=== PATIENT | female | born 2000 | race Caucasian/White ===

== ENCOUNTER 2019-02-11 17:48 | Emergency (ER) | payer MEDICAID ==
--- NOTE | 2019-02-11 17:59 | ED Physician Chart ---
ED Chief Complaint/HPI - Patient Information Date Seen:: 02/11/19 Time Seen:: 17:55 Chief Complaint:: Left earache for 2 days. History of Present Illness:: Pt came in by private auto because of left earache for about 2 days. No fever or hearing loss. No tinnitus. LNMP 11/22/2018. Pt has confirmed single IUP by pelvic sonogram and has been followed by her [facility] physician Dr. Monsalve. Allergies:: Allergies Allergy/AdvReac Type Severity Reaction Status Date / Time ceftriaxone [From Rocephin] Allergy Verified 08/15/16 14:17 Vitals:: see Nurse Note. Historian:: Patient Family MD/PCP:: Dr. Villaseñor. LMP:: 11/22/18 Review:: Nurse's Note Reviewed ED Review of Systems - Review of Systems General/Constitutional: No fever, No chills, No weight loss, No weakness, No loss of appetite Skin: No skin lesions, No rash, No bruising Head: No headache, No light-headedness Eyes: No loss of vision, No pain, No diplopia ENT: Earache, No sore throat Neck: No neck pain, No swelling, No stiffness, No mass noted Cardio Vascular: No chest pain Pulmonary: No SOB, Cough (occasional nonproductive cough with nasal congestion.) GI: No nausea, No vomiting, No pain G/U: No dysuria, No frequency, No hematuria Ese Teacher: No vaginal discharge, No abnormal vaginal bleed Musculoskeletal: No bone or joint pain Endocrine: No polyuria, No polydipsia Psychiatric: No prior psych history, No depression Hematopoietic: No bruising, No lymphadenopathy Allergic/Immuno: No urticaria, No angioedema Neurological: No syncope, No focal symptoms, No weakness, No paresthesia, No headache, No dizziness, No confusion ED Past Medical History - Past Medical History Past Medical History: No significant medical hx Family History: Diabetes Melitus (in one brother.) Social History: Non Smoker, No Alcohol, No Drug Use, Single, Other (lives with her grandmother.) Employment:: unemployed. Surgical History: None Psychiatricy History: None Medication: Reviewed Family Medical History - Family Member Mother History Unknown: Yes ED Physical Exam - Physical Examination General/Constitutional: Awake, Well-developed, well-nourished, No distress, Non- toxic appearing, Ambulatory Other Gen/Cons comments:: Breathes comfortably, speaks clearly, and interacts normally. Head: Atraumatic Eyes: Lids, conjuctiva normal, PERRL, EOMI Skin: Nl inspection, No ecchymosis, Well hydrated, No lymphadenopathy ENMT: Lips, teeth, gums nl, Oropharynx nl, Tonsils nl Other ENMT comments:: There is trace clear exudate noticed in nasal passage. R ear is normal. L ear: TM is mildly erythematous. No swelling or exudate. Neck: Nontender, Full ROM w/o pain, No nuchal rigidity, No mass Respiratory: Nl effort/Exclusion, Clear to Auscultation, No Wheeze/Rhonchi/Rales Cardio Vascular: No murmur, gallop, rubs GI: No tenderness/rebounding/guarding, No organomegaly, Normal BS's, Nondistended, No mass/bruits Extremities: No tenderness or effusion, Full ROM, No edema Neuro/Psych: Alert/oriented (oriented x 3.), Judgement/insight normal, Mood normal, Normal gait, No focal deficits ED Septic Shock - . Is Septic Shock (SBP<90, OR Lactate>4 mmol\L) present?: No ED Reassessment (Disposition) - Reassessment Reassessment:: 1840 Pt feels better and requests to go home now. Discussed with pt at length. Pt states that she had amoxicillin in the past which she tolerated without adverse reactions. Aftercare instructions have been given. Reassessment Condition:: Improved - Diagnosis Diagnosis:: Viral URI with superimposed early left otitis media. Stable. - Aftercare/Follow up Instructions Aftercare/Follow-Up Instructions:: Refer to Discharge Instructions Notes:: May take Tylenol 500 mg tab one tab po q6h prn pain. Avoid flying or ascending to high altitude until further physician direction. F/U with PCP Dr. Villaseñor and [facility] physician Dr. Monsalve in one day for recheck. Return to ER immediately if condition worsens or if any further questions/ problems. Medication Prescribed:: Amoxicillin 500 mg tab one tab po q8h for 10 days. D-30 R-0 - Patient Disposition Discharge/Transfer:: Home Time:: 18:40 Condition at Disposition:: Stable, Improved
[2019-02-11] MEDS ORDERED: Acetaminophen 500 MG TAB ONE (18:23)
== END 2019-02-11 18:32 | disposition home or self-care (01) ==
LOC: ER 17:48
DX: J06.9 Acute upper respiratory infection, unspecified (principal); H92.02 Otalgia, left ear; Z88.1 Allergy status to other antibiotic agents
CPT/HCPCS: Z7502; Z7610